=== PATIENT | female | born 1975 | race Two or more races ===

== ENCOUNTER 2017-02-03 14:18 | Emergency (ER) | payer SELFPAY ==
--- NOTE | ~2017-02-03 | CON ---
PATIENT'S NAME: TANESHA MOTLEY [facility] AGE: 41 Y [address] ROOM: [place] [address] LOCATION: [facility] ADMIT DATE: 02/03/2017 Consultation DISCHARGE DATE: 02/03/2017 FAMILY PHYSICIAN: PHYSICIAN, PAIGE ATTENDING PHYSICIAN: Garima Haines DATE OF CONSULTATION: 02/03/2017 CONSULT REQUESTED BY: DANIE Santiago REASON FOR CONSULTATION: Headache. PATIENT IDENTIFICATION: Tanesha Mccann is a 41-year-old female. PRESENTING COMPLAINT: Headache. HISTORY OF PRESENT ILLNESS: The patient states she was having headache and heaviness of her head. She has a history of intracranial aneurysms. She presented a month ago with what sounded like warning headaches. The patient went to the [facility] and had coiling of some of her aneurysms, and some of the others are still pending treatment. With a headache today, she was concerned about rupture of another aneurysm and came to the ER for evaluation. Currently, her headache has just about resolved. She rates it as about a 2/10. She just has some heaviness of her head. PAST MEDICAL HISTORY: Please see chart. ALLERGIES AND MEDICATIONS: Please see record. REVIEW OF SYSTEMS: A 10-point review of systems was carried out. The only abnormality found is a headache and dizziness as the patient is experiencing. SOCIAL HISTORY: The patient is . PHYSICAL EXAMINATION: GENERAL: The patient is alert and follows commands. Her speech is intact. PATIENT'S NAME: TANESHA MOTLEY [facility] AGE: 41 Y [address] ROOM: [place] [address] LOCATION: [facility] ADMIT DATE: 02/03/2017 Consultation DISCHARGE DATE: 02/03/2017 FAMILY PHYSICIAN: PHYSICIAN, PAIGE ATTENDING PHYSICIAN: Garima Haines CRANIAL NERVES: No deficits seen. MOTOR: The patient has normal strength in all the muscle groups of her upper and lower extremities bilaterally. Gait not tested. CARDIOVASCULAR SYSTEMS: Heart sounds present. RESPIRATORY SYSTEM: The patient is not short of breath at bedside. EXTREMITIES: No cyanosis or clubbing. SKIN: No skin rashes or skin masses. REVIEW OF IMAGING STUDIES: The patient has had a head CT performed today. The head CT scan shows evidence of coiling of her aneurysm in the right hemisphere. Previous imaging studies showed other aneurysms, which are pending treatment. The patient has also had a spinal tap done today. The LP was clear microscopically, and on microscopic examination had 2 red cells only. ASSESSMENT: A 41-year-old female with headaches and known history of aneurysms. MEDICAL DECISION MAKING: The patient has not had an aneurysm rupture at this time. There is no subarachnoid hemorrhage on her CSF, and lumbar puncture shows only 2 red cells. She, however, is still at risk of rupture with the other aneurysms that have not been treated. The patient has an appointment to the [facility] on the February 12, 2017. We have encouraged her to go ahead and keep this appointment, so they can start making arrangements to treat the remaining aneurysms for her. In the mean time, if she develops any change in symptoms, she is welcome to come back here and be treated. MD CAROLINA ALEXANDER/shashank /[id number] d: 02/04/17 0040 t: 02/05/17 1552, CONSULTATION REPORT
--- NOTE | ~2017-02-03 | ER ---
PATIENT'S NAME: ANGELA MOTLEY [facility] AGE: 41 Y [address] ROOM: [place] [address] LOCATION: [facility] ADMIT DATE: 02/03/2017 ER/Outpatient Report DISCHARGE DATE: 02/03/2017 FAMILY PHYSICIAN: PHYSICIAN, NO ATTENDING PHYSICIAN: Garima Haines Time of Arrival: 1435 hours. CHIEF COMPLAINT: Headache. HISTORY OF PRESENT ILLNESS: The patient is a 41-year-old female non-Uzbek speaking. History was obtained with the help of an science interpreter. The patient was found to have a cerebral aneurysm back in December, who was sent to [place] by Dr. Trevizo. The patient underwent a coil procedure and was told that she has 4 other aneurysms that may be necessary to repair in the future. The patient today presents with a headache, which started yesterday. She has had no vomiting with it or fevers or stiff neck. ALLERGIES: SULFA. CURRENT MEDICATIONS: See copied list. PAST MEDICAL HISTORY: Includes recent diagnosis of cerebral aneurysm, hypertension. SURGERIES: Include the recent brain surgery. SOCIAL HISTORY: She is . present. Nonsmoker. No alcohol. REVIEW OF SYSTEMS: GENERAL: No history of any fevers or chills during the last 48 hours. HEENT: Somewhat global type headache. Denied any photophobia or blurred vision, stiff neck, sore throat. RESPIRATORY: No cough or wheezing. CARDIOVASCULAR: Negative. GASTROINTESTINAL: No nausea or vomiting. NEURO: No changes in her gait. No numbness or tingling. PHYSICAL EXAMINATION: PATIENT'S NAME: DOMITILA [facility] AGE: 41 Y [address] ROOM: [place] [address] LOCATION: [facility] ADMIT DATE: 02/03/2017 ER/Outpatient Report DISCHARGE DATE: 02/03/2017 FAMILY PHYSICIAN: PHYSICIAN, PAIGE ATTENDING PHYSICIAN: Garima Haines VITAL SIGNS: She had a temperature of 99, her respiratory rate was 22, pulse 80, blood pressure 164/99. GENERAL APPEARANCE: A female, appeared grimacing, appeared to be in moderate distress. HEAD: There was no temporal tenderness. No gross abnormalities. EYES: Pupils appeared grossly equal. Extraocular muscles intact. MOUTH AND THROAT: Oral membranes were moist. NECK: She had no nuchal rigidity. LUNGS: Clear. HEART: Regular rhythm. NEURO: There were no focal neurological symptoms present. LABORATORY DATA AND X-RAYS: CT of head, Radiology reported no acute changes from previous CTs. Lumbar puncture also showed no presence of any significant blood or infection. ASSESSMENT: Headache with a history of cerebral aneurysms with recent repair. PLAN: I did talk with Dr. Trevizo. He agreed to see the patient in the emergency room. His suggestions are that the patient would be able to go home. Continue her hydrocodone for pain. Recommend to keep her followup appointment on February 12, 2017 in [place]. She was also recommended if she has any concerns or headache increases, to follow up in the emergency room. The patient was given a script for [place] 5/325 one or two every 4-6 hours for pain. Pain management while here in the emergency room, she was given 50 of fentanyl IV with 4 of Zofran. DANIE MCKEON FOR MD ELEAZAR MCCARTHY/shashank /[id number] d: 02/04/17 0138 t: 02/11/17 1412, OUTPATIENT REPORT
[2017-02-03 16:32] LABS: BASOPHIL % 0.4 %; EOSINOPHIL # 0.1 K/uL (0.0-0.5); EOSINOPHIL % 1.5 %; HEMATOCRIT 37.5 % (33.0-46.0); HEMOGLOBIN 12.4 g/dL (10.0-15.0); IMMATURE GRANULOCYTE % 0.3 %; LYMPHOCYTE # 2.2 K/uL (0.8-4.0); LYMPHOCYTE % 29.8 %; MCH 29.2 pg (27.0-34.0); MCHC 33.1 gm/dL (32.0-36.5); MCV 88.4 fl (83.0-98.0); MONOCYTE # 0.6 K/uL (0.0-1.0); MONOCYTE % 8.1 %; MPV 11.1 fl (9.4-12.4); NEUTROPHIL # (ANC) 4.4 K/uL (1.8-7.8); NEUTROPHIL % 59.9 %; NRBC % 0 /100WBC (0-0.00); PLATELET COUNT 220 K/uL (150-450); RBC 4.24 M/uL (3.50-5.50); RDW-CV 13.5 % (11.9-14.6); WBC 7.3 K/uL (4.0-11.0)
[2017-02-03 16:42] LABS: ALBUMIN 3.8 gm/dL (3.5-5.0); ALK PHOS 157 IU/L (33-138); ALT 85 IU/L (12-78); ANION GAP 11.3 (10.0-19.0); AST 37 IU/L (10-40); BLOOD UREA NITROGEN 11 mg/dL (6-24); CALCIUM 8.6 mg/dL (8.5-10.5); CHLORIDE 106 mMol/L (96-110); CO2 27 mMol/L (22-32); CREATININE 0.6 mg/dL (0.5-1.1); ESTIMATED GFR (MDRD EQUATION) > 60; POTASSIUM 3.3 mMol/L (3.7-5.1); SODIUM 141 mMol/L (135-145); TOTAL BILIRUBIN 0.4 mg/dL (0.0-1.5); TOTAL PROTEIN 7.9 g/dL (6.0-8.4)
== END 2017-02-03 18:42 | disposition disaster alternative care site (69) ==
LOC: GMED 14:18
PROVIDERS: Family Medicine
PROC: 009U3ZX Drainage of Spinal Canal, Percutaneous Approach, Diagnostic (ICD-10-PCS; principal; 2017-02-03)
DX: R51 Headache (principal); Z88.2 Allergy status to sulfonamides
CPT/HCPCS: J2405; J3010

== ENCOUNTER 2017-02-09 02:36 | Emergency (ER) | payer SELFPAY ==
--- NOTE | ~2017-02-09 | ER ---
PATIENT'S NAME: ANGELA MOTLEY [facility] AGE: 41 Y [address] ROOM: [place] [address] LOCATION: ED ADMIT DATE: 02/09/2017 ER/Outpatient Report DISCHARGE DATE: 02/09/2017 FAMILY PHYSICIAN: PHYSICIAN, NO ATTENDING PHYSICIAN: Woodrow Wiley CHIEF COMPLAINT: Headache. HISTORY OF PRESENT ILLNESS: The patient had multiple aneurysms and status post partial coiling about a week ago. She has had intermittent and recurrent headaches since then. She states that she has been evaluated in the ER several times for same, treated with Compazine and Benadryl with marked improvement, but not resolution of her headache. The headache that she has today is characteristic of what she has been having. The headache has not resolved completely within the last several days. She has not had any steroids. The onset today was slow and insidious and has been slowly worsening throughout the day. It is not thunderclap in nature. She is scheduled on Friday to see the neurosurgeons back for more coiling. She denies any new changes to this headache other than some maybe tingliness to the face which she has not had before and it is more posterior. PAST MEDICAL HISTORY: Documented on the record and reviewed by me. SOCIAL HISTORY: Documented on the record and reviewed by me. MEDICATIONS: Documented on the record and reviewed by me. ALLERGIES: DOCUMENTED ON THE RECORD AND REVIEWED BY ME. REVIEW OF SYSTEMS: All systems were reviewed and negative except as noted in the HPI. PHYSICAL EXAMINATION: VITAL SIGNS: Blood pressure 126/89, pulse 76, respiratory rate 16, temperature 98.1, SpO2 is 94% on room air. Pain is 8 to 9/10. GENERAL: Age-appropriate female in obvious discomfort, sitting upright on her exam chair in a darkened room. NEUROLOGIC: Awake and alert. She answers questions, is [place], appropriately translated by daughter. She has no obvious dysarthria. No obvious neuro deficits. PATIENT'S NAME: ANGELA MOTLEY [facility] AGE: 41 Y [address] ROOM: [place] [address] LOCATION: ED ADMIT DATE: 02/09/2017 ER/Outpatient Report DISCHARGE DATE: 02/09/2017 FAMILY PHYSICIAN: PHYSICIAN, NO ATTENDING PHYSICIAN: Woodrow Wiley HEENT: Eyes are PERRL, not particularly light sensitive. Oropharynx is clear. NECK: Supple. Trachea is midline. CHEST: Heart is regular rate and rhythm with no murmurs. LUNGS: Clear to auscultation bilaterally with no rhonchi, wheezes, or rales. ABDOMEN: Soft, nontender, and nondistended. No rebound or guarding. BACK: Nontender to palpation throughout. No CVA tenderness. EXTREMITIES: Warm and well perfused. SKIN: Warm, dry, and intact. LABORATORY DATA AND X-RAYS: Head CT was obtained with no significant evidence of bleeding. No other labs were obtained. IMPRESSION: Headache status post aneurysm coiling. EMERGENCY DEPARTMENT COURSE: The patient was seen and evaluated. Based on the patient's history, I do not think that she is actively bleeding from her aneurysms. I believe she is having some pain from the coiling previously. There has been no significant change in the character and nature of this rather than just intensity. She was given Compazine and Benadryl with some fluids and she had complete resolution of her headache for the first time in several days. She did feel a little unusual after that. We observed her for a time and she continued to have improvement. I have elected to discharge her home. She will return immediately if her headache worsens. She is very high risk. However, based on her current presentation, I believe that she is not bleeding today. She should return if needed. Otherwise, follow up with the neurosurgeons. MD PACO BRIGGS/shashank /[id number] d: 02/10/17 0505 t: 02/19/17 0913, OUTPATIENT REPORT
== END 2017-02-09 04:49 | disposition disaster alternative care site (69) ==
LOC: GMED 02:36
DX: R51 Headache (principal)
CPT/HCPCS: J0780; J1200; J7030